=== PATIENT | female | born 1985 | race American Indian/Alaskan Native ===

== ENCOUNTER 2017-07-17 16:03 | Emergency (ER) | payer SELFPAY ==
[2017-07-17] MEDS ORDERED: MOTRIN PO ONE (20:49)
[2017-07-17] MEDS ORDERED: MARCAINE-EPI 0.5%-1:200,000 INFILTRATI ONE (20:49)
--- NOTE | 2017-07-17 20:58 | Emergency Department Report ---
- General Chief complaint: Skin/Abscess/Foreign Body Stated complaint: LEFT ARMPIT ABSCESS Time Seen by Provider: 07/17/17 19:52 Source: patient Mode of arrival: Ambulatory Limitations: No Limitations - History of Present Illness Initial comments: This is a 32-year-old female nontoxic, well nourished in appearance, no acute signs of distress presents to the ED with c/o of abscess of the left axilla region x1 week. Patient denies any chest pain, shortness of breathe, fever, chills, headache, nausea, vomiting, stiff neck. Patient denies any allergies or PMH besides GERD. Patient denies any pus or drainage. MD complaint: abscess/boil -: Gradual, week(s) (1) Tetanus Up to Date: yes Location: LUE Severity: mild Severity scale (0 -10): 8 Quality: aching Consistency: constant Improves with: none Worsens with: none Context: none Associated symptoms: denies other symptoms Treatments Prior to Arrival: none - Related Data Previous Rx's Medication Instructions Recorded Last Taken Type Ibuprofen [Motrin] 600 mg PO Q8H PRN #30 tablet 08/31/15 Unknown Rx Ibuprofen [Motrin] 600 mg PO Q8H PRN #30 tablet 07/17/17 Unknown Rx Sulfamethoxazole/Trimethoprim 1 each PO BID #14 tablet 07/17/17 Unknown Rx [Bactrim Ds Tablet] Allergies Allergy/AdvReac Type Severity Reaction Status Date / Time No Known Allergies Allergy Verified 04/27/14 21:35 Abscess Boil HPI - HPI Chief Complaint: Skin/Abscess/Foreign Body Stated Complaint: LEFT ARMPIT ABSCESS Time Seen by Provider: 07/17/17 19:52 Home Medications: Previous Rx's Medication Instructions Recorded Last Taken Type Ibuprofen [Motrin] 600 mg PO Q8H PRN #30 tablet 08/31/15 Unknown Rx Ibuprofen [Motrin] 600 mg PO Q8H PRN #30 tablet 07/17/17 Unknown Rx Sulfamethoxazole/Trimethoprim 1 each PO BID #14 tablet 07/17/17 Unknown Rx [Bactrim Ds Tablet] Allergies/Adverse Reactions: Allergies Allergy/AdvReac Type Severity Reaction Status Date / Time No Known Allergies Allergy Verified 04/27/14 21:35 ED Review of Systems ROS: Stated complaint: LEFT ARMPIT ABSCESS Other details as noted in HPI Constitutional: denies: chills, fever Eyes: denies: eye pain, eye discharge, vision change ENT: denies: ear pain, throat pain Respiratory: denies: cough, shortness of breath, wheezing Cardiovascular: denies: chest pain, palpitations Endocrine: no symptoms reported Gastrointestinal: denies: abdominal pain, nausea, diarrhea Genitourinary: denies: urgency, dysuria, discharge Musculoskeletal: denies: back pain, joint swelling, arthralgia Skin: other (abscess). denies: rash, lesions Neurological: denies: headache, weakness, paresthesias Psychiatric: denies: anxiety, depression Hematological/Lymphatic: denies: easy bleeding, easy bruising ED Past Medical Hx - Past Medical History Previous Medical History?: Yes Hx GERD: Yes - Surgical History Past Surgical History?: Yes Additional Surgical History: tonsillectomy - Social History Smoking Status: Never Smoker Substance Use Type: Alcohol - Medications Home Medications: Home Medications Medication Instructions Recorded Confirmed Last Taken Type Ibuprofen [Motrin] 600 mg PO Q8H PRN #30 tablet 08/31/15 Unknown Rx Ibuprofen [Motrin] 600 mg PO Q8H PRN #30 tablet 07/17/17 Unknown Rx Sulfamethoxazole/Trimethoprim 1 each PO BID #14 tablet 07/17/17 Unknown Rx [Bactrim Ds Tablet] ED Physical Exam - General Limitations: No Limitations General appearance: alert, in no apparent distress - Head Head exam: Present: atraumatic, normocephalic, normal inspection - Eye Eye exam: Present: normal appearance, PERRL, EOMI. Absent: scleral icterus, conjunctival injection, nystagmus, periorbital swelling, periorbital tenderness Pupils: Present: normal accommodation - ENT ENT exam: Present: normal exam, mucous membranes moist - Neck Neck exam: Present: normal inspection, full ROM. Absent: tenderness, meningismus, lymphadenopathy, thyromegaly - Respiratory Respiratory exam: Present: normal lung sounds bilaterally. Absent: respiratory distress, wheezes, rales, rhonchi, stridor, chest wall tenderness, accessory muscle use, decreased breath sounds, prolonged expiratory - Cardiovascular Cardiovascular Exam: Present: regular rate, normal rhythm, normal heart sounds. Absent: irregular rhythm, systolic murmur, diastolic murmur, rubs, gallop - GI/Abdominal GI/Abdominal exam: Present: soft, normal bowel sounds. Absent: distended, tenderness, guarding, rebound, rigid, diminished bowel sounds - Rectal Rectal exam: Present: deferred - Extremities Exam Extremities exam: Present: normal inspection, full ROM, normal capillary refill. Absent: tenderness, pedal edema, joint swelling, calf tenderness - Back Exam Back exam: Present: normal inspection, full ROM. Absent: tenderness, CVA tenderness (R), CVA tenderness (L), muscle spasm, paraspinal tenderness, vertebral tenderness, rash noted - Neurological Exam Neurological exam: Present: alert, oriented X3, CN II-XII intact, normal gait, reflexes normal - Psychiatric Psychiatric exam: Present: normal affect, normal mood - Skin Skin exam: Present: warm, dry, intact, normal color, other (2 cm abscess with induration flutance to left axilla region. No pus or drainage noted. ). Absent : rash ED Course Vital Signs 07/17/17 16:20 Temperature 99.5 F Pulse Rate 97 H Respiratory 16 Rate Blood Pressure 125/82 O2 Sat by Pulse 96 Oximetry - Reevaluation(s) Reevaluation #1: 07/17/17 21:00 Patient is speaking in full sentences with no signs of distress noted. - I & D Left Chest Type of Procedure: Complex Site: left axilla Blade Size: 11 I & D Procedure: betadine prep, sterile drapes applied, sterile dressing applied , gauze wick placed Progress: Under sterile field, I used Betadine to cleanse the area. I then used 0.5% Marcaine with 1:200,000 epi and with 25-gauge 5/8 needle to inject area for anesthetic purposes. Total volume injected 3 mL. I then used an 11 blade to make a 1 cm incision. About 5 mL's of purulent drainage has been noted. I then used a hemostat to break the abscess formation. I then used sterile 0.9% normal saline flush to flush the wound with total volume of 40 mL used. I then put a 1/4 iodoform packing to the incision. A sterile 4 x 4 with tape has been applied as dressing. Bleeding is under control. Patient tolerated the procedure well with no signs of distress noted. ED Medical Decision Making - Medical Decision Making This is a 32-year-old female that presents with abscess. PAtient is stable and was examined by me. Patient stated UTD with tetanus less then 5 years ago. Incision and drainage has been performed and patient tolerated well. Patient was instructed to return to the ED in 2 days for packing removal and reassessment of the abscess. Patient also received Bactrim at d/c and was instructed to follow-up with PCP. At time time of discharge, the patient does not seem toxic or ill in appearance. No acute signs of distress noted. Patient agrees to discharge treatment plan of care. No further questions noted by the patient. Critical care attestation.: If time is entered above; I have spent that time in minutes in the direct care of this critically ill patient, excluding procedure time. ED Disposition Clinical Impression: Abscess, Encounter for incision and drainage procedure Disposition: TO HOME OR SELFCARE Is pt being admited?: No Does the pt Need Aspirin: No Condition: Stable Instructions: Sulfamethoxazole/Trimethoprim (By mouth), Ibuprofen (By mouth), Abscess Incision and Drainage (ED), Abscess (ED) Additional Instructions: Follow-up with a primary care doctor in 3-5 days or if symptoms worsen and continue return to emergency room as soon as possible. Return in 2 days to the ED for packing removal and reassessment of abscess. Prescriptions: Ibuprofen [Motrin] 600 mg PO Q8H PRN #30 tablet PRN Reason: Pain Sulfamethoxazole/Trimethoprim [Bactrim Ds Tablet] 1 each PO BID #14 tablet Referrals: PRIMARY CAREMD [Primary Care Provider] - 3-5 Days LALITHA STONE MD [Staff Physician] - 3-5 Days [facility] [Outside] - 3-5 Days [facility] [Outside] - 3-5 Days Forms: Work/School Release Form(ED)
[2017-07-17] MEDS ORDERED: MARCAINE 0.5% INFILTRATI ONE ×2 (21:46→22:14)
[2017-07-17] MEDS ORDERED: MARCAINE 0.5% INFILTRATI NR (23:00)
[2017-07-18 00:38] VITALS: BP 110/64
== END 2017-07-17 23:10 | disposition home or self-care (01) ==
LOC: ED 16:03
DX: L02.412 Cutaneous abscess of left axilla (principal); K21.9 Gastro-esophageal reflux disease without esophagitis
CPT/HCPCS: 99282

== ENCOUNTER 2018-01-21 11:01 | Emergency (ER) | payer SELFPAY | END 2018-01-21 11:40 | disposition left against medical advice (07) | LOC: ED 11:01 | DX: R20.0 Anesthesia of skin (principal); Z53.21 Procedure and treatment not carried out due to patient leaving prior to being seen by health care provider ==

== ENCOUNTER 2018-06-09 17:42 | Emergency (ER) | payer SELFPAY ==
[2018-06-09 17:52] VITALS: BP 128/79
[2018-06-09] MEDS ORDERED: NACL 0.9% 1000 ML 1,000 ML IV ONE (18:09)
[2018-06-09] MEDS ORDERED: ZOFRAN IV ONE (18:09)
[2018-06-09] MEDS ORDERED: MORPHINE IV ONE (18:10)
--- NOTE | 2018-06-09 18:13 | Emergency Department Report ---
Chief Complaint: Abdominal Pain Stated Complaint: STOMACH/BACK/EAR PAIN Time Seen by Provider: 06/09/18 18:00 - HPI History of Present Illness: Little is a healthy female with severe diffuse abdominal pain. Hx of dysmenorrhea. Currently menstruating. CT, labs ordered. Analgesia ordered. Patient will be managed by oncoming provider. I have performed medical screening exam while initiating orders. - Exam Vital Signs: Vital Signs 06/09/18 17:49 Temperature 97.8 F Pulse Rate 85 Respiratory 16 Rate Blood Pressure 128/79 O2 Sat by Pulse 100 Oximetry MSE screening note: Focused history and physical exam performed. Due to findings the following was ordered: ED Disposition for MSE Condition: Stable Instructions: Abdominal Pain (ED) Referrals: PRIMARY CARE, [Primary Care Provider] - 3-5 Days
[2018-06-09 18:32] LABS: Hematocrit 41.5 % (30.3-42.9); Hemoglobin 13.4 gm/dl (10.1-14.3); Mean Corpuscular HGB Conc 32 % (30-34); Mean Corpuscular Hemoglobin 29 pg (28-32); Mean Corpuscular Volume 89 fl (79-97); Platelet Count 390 K/mm3 (140-440); Red Blood Count 4.67 M/mm3 (3.65-5.03); Red Cell Distribution Width 14.4 % (13.2-15.2)
[2018-06-09 18:41] LABS: Bacteria,Urine 1+ /HPF (Negative); Bilirubin,Urine NEG (Negative); Blood,Urine MOD (Negative); Color,Urine Yellow (Yellow); Mucus,Urine FEW /HPF; Protein,Urine <15 mg/dL mg/dL (Negative); Urobilinogen,Urine < 2.0 mg/dL (<2.0); WBC,Urine < 1.0 /HPF (0.0-6.0)
[2018-06-09 18:42] LABS: HCG Qualitative,Urine Negative (Negative)
[2018-06-09 19:06] LABS: Alanine Aminotransferase 18 units/L (7-56); Albumin 4.1 g/dL (3.9-5); BUN/Creatinine Ratio 10; Blood Urea Nitrogen 8 mg/dL (7-17); Calcium 8.8 mg/dL (8.4-10.2); Hemolysis Index 19; Lipase 31 units/L (13-60)
[2018-06-09 19:11] LABS: Band Neutrophils # (Manual) 0.3 K/mm3; Basophils % (Manual) 0 % (0.0-1.8); Total Cells Counted 100
[2018-06-09 19:12] LABS: RBC Morphology Normal
[2018-06-09 19:18] LABS: Bilirubin,Direct < 0.2 mg/dL (0-0.2)
--- NOTE | 2018-06-09 19:49 | Emergency Department Report ---
ED Abdominal Pain HPI - General Chief Complaint: Abdominal Pain Stated Complaint: STOMACH/BACK/EAR PAIN Time Seen by Provider: 06/09/18 18:00 Source: patient Mode of arrival: Ambulatory Limitations: No Limitations - History of Present Illness Initial Comments: 33-year-old -[place] female presents to the emergency room with severe diffuse abdominal pain that started 3 days ago. Patient also admits to lower back pain. Patient reports fever urinary urgency urinary frequency denies any vaginal discharge denies any dysuria. She reports that the pain is worse when lying down in the stomach. She is not taking anything for pain management. Review of chart shows patient has a past medical history of GERD and tonsillectomy. Patient currently takes no medications has no known drug allergies. MD Complaint: abdominal pain -: days(s) (3) Location: diffuse Radiation: none Severity scale (0 -10): 6 Quality: cramping, fullness Consistency: constant Improves With: nothing Worsens With: other (lying down on her stomach) Associated Symptoms: fever (2 days ago). denies: nausea, vomiting, diarrhea, constipation, dysuria, hematemesis, hematuria, anorexia, syncope Treatments Prior to Arrival: other (none) - Related Data LMP Date: 06/09/18 Previous Rx's Medication Instructions Recorded Last Taken Type Ibuprofen [Motrin] 600 mg PO Q8H PRN #30 tablet 08/31/15 Unknown Rx Ibuprofen [Motrin] 600 mg PO Q8H PRN #30 tablet 07/17/17 Unknown Rx Sulfamethoxazole/Trimethoprim 1 each PO BID #14 tablet 07/17/17 Unknown Rx [Bactrim Ds Tablet] Ibuprofen [Motrin 800 MG tab] 800 mg PO Q8HR PRN #30 tablet 06/09/18 Unknown Rx Allergies Allergy/AdvReac Type Severity Reaction Status Date / Time No Known Allergies Allergy Verified 04/27/14 21:35 ED Review of Systems ROS: Stated complaint: STOMACH/BACK/EAR PAIN Other details as noted in HPI Comment: All other systems reviewed and negative ED Past Medical Hx - Past Medical History Hx GERD: Yes - Surgical History Additional Surgical History: tonsillectomy - Social History Smoking Status: Never Smoker Substance Use Type: None - Medications Home Medications: Home Medications Medication Instructions Recorded Confirmed Last Taken Type Ibuprofen [Motrin] 600 mg PO Q8H PRN #30 tablet 08/31/15 Unknown Rx Ibuprofen [Motrin] 600 mg PO Q8H PRN #30 tablet 07/17/17 Unknown Rx Sulfamethoxazole/Trimethoprim 1 each PO BID #14 tablet 07/17/17 Unknown Rx [Bactrim Ds Tablet] Ibuprofen [Motrin 800 MG tab] 800 mg PO Q8HR PRN #30 tablet 06/09/18 Unknown Rx ED Physical Exam - General Limitations: No Limitations General appearance: alert, in no apparent distress - Head Head exam: Present: atraumatic, normocephalic - Eye Eye exam: Present: EOMI - ENT ENT exam: Present: mucous membranes moist - Respiratory Respiratory exam: Present: normal lung sounds bilaterally. Absent: respiratory distress - Cardiovascular Cardiovascular Exam: Present: regular rate, normal rhythm. Absent: systolic murmur, diastolic murmur, rubs, gallop - GI/Abdominal GI/Abdominal exam: Present: soft, tenderness. Absent: normal bowel sounds - Extremities Exam Extremities exam: Present: normal inspection, full ROM - Back Exam Back exam: Present: CVA tenderness (R), CVA tenderness (L) - Neurological Exam Neurological exam: Present: alert, oriented X3 - Psychiatric Psychiatric exam: Present: normal affect, normal mood - Skin Skin exam: Present: warm, dry, intact, normal color. Absent: rash ED Course Vital Signs 06/09/18 17:49 Temperature 97.8 F Pulse Rate 85 Respiratory 16 Rate Blood Pressure 128/79 O2 Sat by Pulse 100 Oximetry ED Medical Decision Making - Lab Data Result diagrams: 06/09/18 18:18 06/09/18 18:18 - Radiology Data Radiology results: report reviewed FINDINGS: The lung bases are without infiltrate, pneumothorax or pleural fluid collection. Heart appears to be upper limits of normal size to mildly enlarged. The liver, spleen, pancreas, kidneys and adrenal glands are unremarkable in appearance. The gallbladder is mildly distended and unremarkable in appearance. The bowel is normal caliber. The appendix is normal caliber. There is no evidence of pneumoperitoneum or free fluid. The abdominal aorta is normal caliber. There is no evidence of pathologic intra-abdominal adenopathy by CT size criteria. The urinary bladder is mildly distended and unremarkable in appearance. The uterus and adnexal are notable for the appearance of a cystic structure in the right ovary that appears to measure approximately 3 centimeters in size. The bony structures the are notable for the appearance of degenerative disc change at the T12-L1 level and mild retrolisthesis of L4 on L5. L5 appears to be partially sacralized. IMPRESSION: 1. No evidence of an acute intra-abdominal process. 2. Appearance of an approximately 3 centimeter possible cystic structure right ovary. Pelvic ultrasound may be helpful for further evaluation if this is in the region of the patient's pain. 3. The heart appears to be upper limits of normal size to mildly enlarged. Transcribed By: ED Dictated By: FRANCES CARVER MD Electronically Authenticated By: FRANCES CARVER MD Signed Date/Time: 06/09/181953 DD/ 53 TD/TT: 06/09/181953 - Medical Decision Making Patient has been evaluated by this provider in fast track as well as Dr. Paulo Valenzuela. Patient was given analgesic for pain management. Basic labs were ordered and urinalysis has been ordered as well as a CT of abdomen and pelvic Patient has fluids going and IV CT shows possible 3 cm cystic lesion to the right ovary. No intra-abdominal abnormalities. We'll discharge patient to follow up with [facility]. Will discharge patient on ibuprofen 800 mg every 8 hours as needed for pain. Critical care attestation.: If time is entered above; I have spent that time in minutes in the direct care of this critically ill patient, excluding procedure time. ED Disposition Clinical Impression: Ovarian cyst Qualifiers: Laterality: right Qualified Code(s): N83.201 - Unspecified ovarian cyst, right side Disposition: - TO HOME OR SELFCARE Is pt being admited?: No Does the pt Need Aspirin: No Condition: Stable Instructions: Abdominal Pain (ED) Additional Instructions: Please take pain medication as needed. It is very important for you to follow up with [facility]. Prescriptions: Ibuprofen [Motrin 800 MG tab] 800 mg PO Q8HR PRN #30 tablet PRN Reason: Pain , Severe (7-10) Referrals: PRIMARY CARE, [Primary Care Provider] - 3-5 Days [facility] [Provider Group] - 3-5 Days [facility] [Provider Group] - 3-5 Days
--- NOTE | 2018-06-09 19:55 | Cat Scan Report ---
FINAL REPORT EXAM: CT ABDOMEN PELVIS W CON HISTORY: severe abd pain TECHNIQUE: Following IV administration of 100 cc of Omnipaque 300 axial helical imaging was performed through the abdomen and pelvis with sagittal and coronal reformatted images obtained. Delayed axial helical imaging was also performed through the abdomen and pelvis. Comparison: None FINDINGS: The lung bases are without infiltrate, pneumothorax or pleural fluid collection. Heart appears to be upper limits of normal size to mildly enlarged. The liver, spleen, pancreas, kidneys and adrenal glands are unremarkable in appearance. The gallbladder is mildly distended and unremarkable in appearance. The bowel is normal caliber. The appendix is normal caliber. There is no evidence of pneumoperitoneum or free fluid. The abdominal aorta is normal caliber. There is no evidence of pathologic intra-abdominal adenopathy by CT size criteria. The urinary bladder is mildly distended and unremarkable in appearance. The uterus and adnexal are notable for the appearance of a cystic structure in the right ovary that appears to measure approximately 3 centimeters in size. The bony structures the are notable for the appearance of degenerative disc change at the T12-L1 level and mild retrolisthesis of L4 on L5. L5 appears to be partially sacralized. IMPRESSION: 1. No evidence of an acute intra-abdominal process. 2. Appearance of an approximately 3 centimeter possible cystic structure right ovary. Pelvic ultrasound may be helpful for further evaluation if this is in the region of the patient's pain. 3. The heart appears to be upper limits of normal size to mildly enlarged.
== END 2018-06-09 22:43 | disposition home or self-care (01) ==
LOC: ED 17:42
DX: N83.201 Unspecified ovarian cyst, right side (principal); K21.9 Gastro-esophageal reflux disease without esophagitis; Z90.89 Acquired absence of other organs
CPT/HCPCS: 36415; 74177; 80048; 80074; 81001; 81025; 83690; 85007; 85025; 87086; 96374; 96375; 99284; J2270; J2405; J7030; Q9967